=== PATIENT | female | born 1945 | race Caucasian/White ===

== ENCOUNTER → 2023-12-29 14:21 | Outpatient (REF) | payer MEDICARE, OTHER, SELFPAY | LOC: WDC 14:21 | PROVIDERS: ATTENDING PHYSICIAN Physician Assistant Medical; FAMILY PHYSICIAN Internal Medicine | DX: Z12.31 Encounter for screening mammogram for malignant neoplasm of breast (principal) | CPT/HCPCS: 77063; 77067 ==

== ENCOUNTER 2024-02-22 07:38 | Emergency (ER) | payer MEDICARE, OTHER, SELFPAY ==
[2024-02-22 07:41] VITALS: BP 152/76
[2024-02-22 09:37] VITALS: BMI 29.3
--- NOTE | 2024-02-22 09:43 | ED.GENMED ---
History of Present Illness
General
Chief Complaint: Fall
Source: patient
Exam Limitations: none
Time Seen by Provider: 02/22/24 09:25
Nursing documentation reviewed up to this point in time: agreed with
Travel History
Have you had any contact with someone who has COVID-19?: No
Do you have any symptoms of coronavirus? Fever > 100 degrees, chills, cough, shortness of breath, sore throat, loss of taste or smell, muscle aches, or headache?: No
History of Present Illness
History of Present Illness:
78-year-old female with past medical history as documented presents to the emergency room with her for evaluation after fall with head trauma. Patient reports that she was carrying a bag walking down the steps today and she tripped and fell
down approximately 5 steps. She says that she fell forward and struck her head directly on the ground. She does not believe that she lost consciousness. She says that she also injured her right shoulder and her right watts. She complains of
significant headache. Denies any neck pain. She says she has some pain in the anterior right shoulder. She has some pain in the anterior lateral right watts and large hematoma in the area. She denies any back pain. Denies any chest wall/rib
pain. Denies any abdominal pain. She denies any numbness or tingling in her extremities. She is on aspirin but no other blood thinners.
Past History
Past History
ED Past Medical History: HTN, Hypercholesterolemia, Hypothyroidism and Psychiatric (Depression)
ED Past Surgical History: Cardiac (pacemaker/defib), Gynecological (Hysterectomy) and Other (Cataract surgery)
Social History
Tobacco: Non-smoker
Alcohol: None
Drug: None
Personal:
Living: with family
Employment: Employed
Review of Systems
Review of Systems
All Other Systems: ROS reviewed and negative except as documented in HPI and ROS
Constitutional: Denies fever
Respiratory: Denies trouble breathing
Cardiac: Denies chest pain
ABD/GI: Denies abdominal pain, nausea or vomiting
: Denies flank pain
Musculoskeletal: Reports joint pain (Shoulder pain) and muscle pain (Watts pain); Denies neck pain or back pain
Neurological: Reports headache; Denies dizzy, weakness or numbness
Phy Exam
Physical Exam
Physical Exam:
General: Awake, alert, oriented x3 with a GCS of 15; no acute distress
Head: Normocephalic, right forehead contusion
Eyes: Conjunctiva normal, EOMI, pupils equal round and reactive to light bilaterally
Throat: Airway intact, handling secretions, tongue atraumatic
Neck: Trachea midline, no midline cervical spine tenderness, cervical collar in place
Lungs: Clear to auscultation bilaterally, no wheezing, rales, rhonchi
Heart: Regular rate and rhythm, no murmurs, gallops, or rubs; no chest wall tenderness
Abd: Soft, non distended, nontender
Neuro: Cranial nerves intact, speech is fluid, motor and sensory function intact in all extremities
Skin: Right forehead ecchymosis, right lower leg ecchymosis, no lacerations or abrasions
Extremities: Patient has some mild tenderness along the AC joint and the right shoulder but full range of motion of the right shoulder no deformity; rest of upper extremities atraumatic and nontender; she has a large right watts hematoma anterior
lateral which is tender to the touch but no tenderness of the right ankle or knee and full range of motion of these joints, rest of extremities atraumatic and nontender; good pulses in all extremities
Scores
Heart Failure Risk
Heart Failure Risk Score: Not Applicable
Heart Score for Chest Pain Patients
STEMI patient?: Not applicable
Withdrawal Assessment of Alcohol
Withdrawal Assessment Completed?: Not applicable
Course
Orders/Labs/Results
Orders:
Orders
02/22/24 07:45
CT Head W/o Iv Contrast Urgent
Comment:
Reason For Exam: fall
CR Shoulder, Trauma - Right Urgent
Comment:
Reason For Exam: fall
Leg Tibia/Fibula, Right 2 View [CR Leg Tibia/fibula Right 2 Vw] Urgent
Comment:
Reason For Exam: fall
02/22/24 09:26
CT Cervical Spine W/o Iv Contr Urgent
Comment:
Reason For Exam: fall with head strike
02/22/24 09:27
Complete Blood Count/With Diff Urgent
Comprehensive Metabolic Panel Urgent
PTT Urgent
Prothrombin Time Urgent
02/22/24 09:38
Cervical Collar- Treatment ONCE
Collar Type: Hard Cervical Collar
Vital Signs
Initial and Last Documented VS:
Initial Vital Signs
Temp Pulse Resp BP Pulse Ox
36.6 C 69 16 152/76 99
02/22/24 07:41 02/22/24 07:41 02/22/24 07:41 02/22/24 07:41 02/22/24 07:41
Last Documented Vital Signs
Temp Pulse Resp BP Pulse Ox
36.6 C 69 16 152/76 99
02/22/24 07:41 02/22/24 07:41 02/22/24 07:41 02/22/24 07:41 02/22/24 07:41
MDM/Problems Addressed
Differential Diagnosis Includes:
Headache: Intracranial hemorrhage, concussion, contusion
Shoulder pain: Fracture, dislocation, sprain, AC separation
Leg injury: Contusion, fracture
MDM/Problems Addressed:
78-year-old female presents to the emergency room for evaluation after a fall down about 5 steps�fall occurred around 7:30�8 AM today. She is on aspirin but no other blood thinners. She struck her head and injured her right shoulder and lower leg.
Vital signs significant for hypertension but otherwise unremarkable. Physical exam as above. GCS 15 primary survey intact. Cervical collar applied. She had a CT head ordered in triage which was positive for a small subdural hematoma. Will send
for CT cervical spine as well. X-ray of the right shoulder and tip/fib. Case discussed with neurosurgery�will arrange for transfer to [facility].
X-ray of the shoulder and tip/fib negative for any acute fracture. CT cervical spine negative. Case discussed with trauma physician at [facility] and patient accepted for transfer to ICU by Dr. Forrester. Continue to monitor pending transport.
Acute Exacerbation and/or Progression of Chronic Illness: HTN
*Radiology
Radiology exam reviewed: preliminary read by ED provider and radiology read reviewed
*Pulse Oximetry
Patient hypoxic: no
*Critical Care Note
Total Time (30-74mins, 75-104mins- exclusive of procedures): 38 (38)
comment:
Critical care statement: A total of 38 minutes of critical care time was provided for this patient. This includes management of unstable vital signs, evaluation of the patient at bedside, frequent reassessment, discussion with
consultants/hospitalist, and review of pertinent medical records. This time was separate from time utilized to perform any aforementioned documented procedures
Data Reviewed
Review of Other/Old Records Reveals: Records
Source: patient and spouse
Patient Management
Discussion with other providers: Can Filling Room Sweeper (Discussed with neurosurgery, discussed with trauma physician at [facility])
Escalation/DeEscalation of care consider admission/obs:
Admission indicated�transfer to trauma center
ED Attending Note
-
Portions of this chart may have been created with voice recognition software.� Occasional wrong word or��sound alike� substitutions may have occurred due to the inherent limitations of voice recognition software.
Discharge Plan
Departure
Patient Disposition: Acute Care Hospital
Date of Disposition: 02/22/24
Time of Disposition: 09:55
Patient with high blood pressure during this ER visit?: Yes
Discharge Problem:
Acute subdural hematoma, Hematoma of right lower leg, Injury of right shoulder
Prescriptions:
No Action
venlafaxine [Effexor XR] 150 MG capsule,extended release 24hr
150 mg PO DAILY
simvastatin 20 MG tablet
20 mg PO HS
bupropion HCl 150 MG tablet sustained-release 12 hr
150 mg PO DAILY
aspirin 81 MG tablet,chewable
81 mg PO DAILY
carvedilol 3.125 MG tablet
3.125 mg PO BID Qty: 60 10RF
levothyroxine 88 mcg Capsule
88 mcg PO DAILY
Jardiance 10 mg Tablet
10 mg PO DAILY
Entresto 24-26 mg Tablet
1 tab PO BID
famotidine 10 mg Tablet
10 mg PO DAILY
Referrals:
Poornima Lin MD [Family Provider] -
Hospital Transfer
Other hospital: [facility]
I certify that the patient requires transfer: Yes
Discussed case with accepting physician: Dr. Forrester
Reason for transfer: higher level of care and specialties available
Interventions
Interventions:
*Risk Screen - Suicide Last Done: 02/22/24 07:44
*General Assessment Last Done: 02/22/24 07:44
*Neglect/Abuse Screening Last Done: 02/22/24 07:44
Discharge Date and Time
Print Language: MACANESE
[2024-02-22 10:00] LABS: % Basophils 0.6 % (0-2); % Eosinophils 1.6 % (0-6); % Immature Granulocytes 0.7 % (0-0.5); % Lymphocytes 10.9 % (20.5-51.1); % Monocytes 6.8 % (1.7-9.3); % Neutrophils 79.4 % (42.2-75.2); Absolute Basophils 0.1 10^3/uL (0-0.2); Absolute Eosinophils 0.2 10^3/uL (0-0.7); Absolute Immature Granulocytes 0.1 10^3/uL (0-0.05); Absolute Lymphocytes 1.1 10^3/uL (1.2-3.4); Absolute Monocytes 0.7 10^3/uL (0.1-0.6); Absolute Neutrophils 7.8 10^3/uL (1.4-6.5); Hematocrit 43.1 % (37.0-47.0); Hemoglobin 14.2 g/dL (12.0-16.0); Mean Corp Hgb Conc. 32.9 g/dL (33.0-37.0); Nucleated Red Blood Cells % 0 %; Platelet Count 222 10^3/uL (130-400); Red Cell Dist. Width 13.5 % (11.5-14.5); White Blood Cell Count 9.9 10^3/uL (4.8-10.8)
[2024-02-22 10:07] LABS: APTT 28.6 Sec (23.4-35.0); INR 1.03; PT 13.3 Sec (11.4-14.6)
[2024-02-22 10:14] VITALS: BP 142/75
[2024-02-22 10:21] LABS: ALT (SGPT) 17 U/L (0-35); AST (SGOT) 26 U/L (14-36); Albumin 4.4 g/dl (3.5-5.0); Alkaline Phosphatase 78 U/L (38-126); Blood Urea Nitrogen 18 mg/dl (7-17); Calcium 9.6 mg/dl (8.4-10.2); Carbon Dioxide 30 mmol/L (22-30); Chloride 105 mmol/L (98-107); Estimated Creatinine Clearance 56 ml/min; Glucose 117 mg/dl (70-99); Potassium 4.2 mmol/L (3.5-5.1); Sodium 142 mmol/L (135-145); Total Bilirubin 0.9 mg/dl (0.2-1.3); Total Protein 7.2 g/dl (6.3-8.2); eGFR > 60.00
== END 2024-02-22 11:12 | disposition short-term general hospital (02) ==
LOC: EMR 07:38
PROVIDERS: EMERGENCY PHYSICIAN Emergency Medicine; FAMILY PHYSICIAN Internal Medicine
DX: S40.011A Contusion of right shoulder, initial encounter (principal); S80.11XA Contusion of right lower leg, initial encounter; W10.9XXA Fall (on) (from) unspecified stairs and steps, initial encounter; Y93.01 Activity, walking, marching and hiking; I10 Essential (primary) hypertension; E78.00 Pure hypercholesterolemia, unspecified; E03.9 Hypothyroidism, unspecified; F32.A Depression, unspecified; Z79.82 Long term (current) use of aspirin; Z90.710 Acquired absence of both cervix and uterus; Z95.0 Presence of cardiac pacemaker
CPT/HCPCS: 99291; 70450; 72125; 73030; 73590; 80053; 85025; 85610; 85730

== ENCOUNTER → 2024-03-26 08:53 | Outpatient (REF) | payer MEDICARE, OTHER, SELFPAY | LOC: HWRAD 08:53 | PROVIDERS: ATTENDING PHYSICIAN Physician Assistant Medical; FAMILY PHYSICIAN Internal Medicine | DX: K76.9 Liver disease, unspecified (principal); S06.5XAA Traumatic subdural hemorrhage with loss of consciousness status unknown, initial encounter | CPT/HCPCS: 70450; 76700 ==

== ENCOUNTER → 2024-05-18 08:51 | Outpatient (REF) | payer MEDICARE, OTHER, SELFPAY ==
[2024-05-18 09:45] LABS: % Basophils 0.9 % (0-2); % Eosinophils 3.1 % (0-6); % Immature Granulocytes 0.3 % (0-0.5); % Monocytes 8.2 % (1.7-9.3); % Neutrophils 62.5 % (42.2-75.2); Absolute Basophils 0.1 10^3/uL (0-0.2); Absolute Eosinophils 0.2 10^3/uL (0-0.7); Absolute Lymphocytes 1.7 10^3/uL (1.2-3.4); Absolute Monocytes 0.6 10^3/uL (0.1-0.6); Absolute Neutrophils 4.2 10^3/uL (1.4-6.5); Hematocrit 42.8 % (37.0-47.0); Mean Corp Hgb Conc. 32.7 g/dL (33.0-37.0); Mean Corpuscular Hgb 29.4 pg (27.0-31.0); Mean Corpuscular Volume 89.9 fL (81.0-99.0); Mean Platelet Volume 10.4 fL (7.4-10.4); Nucleated Red Blood Cells % 0 %; Platelet Count 217 10^3/uL (130-400); Red Blood Cell Count 4.76 10^6/uL (4.20-5.40); Red Cell Dist. Width 13.9 % (11.5-14.5); White Blood Cell Count 6.7 10^3/uL (4.8-10.8)
[2024-05-18 10:13] LABS: Glycohemoglobin (HgbA1c) 6.1 % (4.0-5.6)
[2024-05-18 10:32] LABS: ALT (SGPT) 13 U/L (0-35); AST (SGOT) 19 U/L (14-36); Albumin 4.3 g/dl (3.5-5.0); Alkaline Phosphatase 76 U/L (38-126); Blood Urea Nitrogen 23 mg/dl (7-17); Calcium 9.8 mg/dl (8.4-10.2); Carbon Dioxide 29 mmol/L (22-30); Chloride 103 mmol/L (98-107); Glucose 114 mg/dl (70-99); HDL Cholesterol 79 mg/dl; LDL Cholesterol, Calculated 102 mg/dl; Potassium 4.8 mmol/L (3.5-5.1); Sodium 143 mmol/L (135-145); Total Bilirubin 0.7 mg/dl (0.2-1.3); Total Cholesterol 205 mg/dl (50-199); Triglyceride 124 mg/dl (10-149); Very Low Density Lipoprotein 24 mg/dl (0-30); eGFR > 60.00
[2024-05-18 11:06] LABS: TSH 0.69 uIU/ml (0.47-4.68)
== END ==
LOC: REG 08:51
PROVIDERS: ATTENDING PHYSICIAN Internal Medicine
DX: I50.22 Chronic systolic (congestive) heart failure (principal); I10 Essential (primary) hypertension; E78.2 Mixed hyperlipidemia; E66.3 Overweight; E78.5 Hyperlipidemia, unspecified
CPT/HCPCS: 36415; 80053; 80061; 83036; 84443; 85025

== ENCOUNTER 2024-10-06 11:36 | Emergency (ER) | payer MEDICARE, OTHER, SELFPAY ==
[2024-10-06 11:41] VITALS: BP 109/60
--- NOTE | 2024-10-06 13:17 | ED.GENMED ---
History of Present Illness
General
Chief Complaint: Musculo-Skeletal Complaint
Time Seen by Provider: 10/06/24 13:00
History of Present Illness
History of Present Illness:
Patient is a 79-year-old woman presenting to the emergency department with left hip pain. Patient states that yesterday she was getting into her car when her right leg was in the car and all her weight was on the left leg. She states at that point
her left leg gave out. She did not fall. She was having difficulty with walking. She states that she is significant pain with flexion of her hip. No tenderness. No bruising. No numbness tingling. No back pain.
Past History
Past History
ED Past Medical History: HTN, Hypercholesterolemia, Hypothyroidism and Psychiatric (Depression)
ED Past Surgical History: Cardiac (pacemaker/defib), Gynecological (Hysterectomy) and Other (Cataract surgery)
Social History
Tobacco: Non-smoker
Alcohol: None
Drug: None
Personal:
Living: with family
Employment: Employed
Phy Exam
Physical Exam
Physical Exam:
GENERAL: no acute distress
HEENT: atraumatic
NECK: no midline tenderness
BACK: no midline tenderness, no other obvious trauma
CARDIOVASCULAR: regular rate and rhythm
ABDOMEN: soft, non-tender, no masses, no other obvious trauma
PELVIS: Difficulty with flexion of the hip when the leg is extended. With the knee flexed she is able to fully flex the hip, no tenderness to palpation
EXTREMITIES: moving all extremities, distal pulses intact, no other obvious trauma
NEUROLOGIC: awake, alert x 3, no focal deficits
Course
Orders/Labs/Results
Orders:
Orders
10/06/24 13:17
Ibuprofen [Motrin] 800 mg PO NOW STA
CR Hip - LT w/wo Pel 2-3 Vw* Urgent
Comment:
Reason For Exam: hip pain
Include a pelvis x-ray?: Yes
Vital Signs
Initial and Last Documented VS:
Initial Vital Signs
Temp Pulse Resp BP Pulse Ox
97.2 F 71 16 109/60 99
10/06/24 11:41 10/06/24 11:41 10/06/24 11:41 10/06/24 11:41 10/06/24 11:41
Last Documented Vital Signs
Temp Pulse Resp BP Pulse Ox
97.2 F 71 16 109/60 99
10/06/24 11:41 10/06/24 11:41 10/06/24 11:41 10/06/24 11:41 10/06/24 11:41
MDM/Problems Addressed
Differential Diagnosis Includes:
79-year-old woman presenting to the emergency department with left hip pain. Vitals unremarkable and exam does show some difficulty with flexion of the knee when the entire leg is extended. She does not have any tenderness to palpation. Concern
for fracture versus MSK pain. Will give pain medication and obtain x-ray.
*Critical Care Note
Total Time (30-74mins, 75-104mins- exclusive of procedures): Not Applicable
Update Note
Update Note:
X-ray per my interpretation with no obvious fracture. Patient was able to ambulate does note the pain is improved. We did discuss the possibility of obtaining a CT pelvis however the pain is more lateral and goes down her leg only when she walks.
Less likely to be a subtle pelvic fracture. After shared decision making we will hold off on CT scan. Patient educated on pain medication regimen. She will call physical therapy for an appointment as well as her primary care doctor. Strict
return precautions given. Will discharge at this time
ED Attending Note
-
Portions of this chart may have been created with voice recognition software.� Occasional wrong word or��sound alike� substitutions may have occurred due to the inherent limitations of voice recognition software.
Discharge Plan
Departure
Discharge Problem:
Hip pain
Instructions: Muscle Strain (DC), Active Range of Motion Exercises, Back and Hips, Hip Pain ED
Prescriptions:
No Action
venlafaxine [Effexor XR] 150 MG capsule,extended release 24hr
150 mg PO DAILY
simvastatin 20 MG tablet
20 mg PO HS
bupropion HCl 150 MG tablet sustained-release 12 hr
150 mg PO DAILY
aspirin 81 MG tablet,chewable
81 mg PO DAILY
carvedilol 3.125 MG tablet
3.125 mg PO BID Qty: 60 10RF
levothyroxine 88 mcg Capsule
88 mcg PO DAILY
Jardiance 10 mg Tablet
10 mg PO DAILY
Entresto 24-26 mg Tablet
1 tab PO BID
famotidine 10 mg Tablet
10 mg PO DAILY
Referrals:
Slick Meléndez MD [Family Provider] -
Activity Restrictions/Additional Instructions:
Please call your physical therapist as well as her primary care doctor to schedule an appointment. Please try the exercises that were printed out. You may alternate heat and ice to help with the pain.
We discussed pain medications:
You may take Tylenol (also known as Acetaminophen) for pain.
You may take 1000mg Acetaminophen (two extra-strength tablets) per dose, which should be taken every 6-8 hours, or three times a day.
If you have normal strength Tylenol, you can take 650mg (two normal strength tablets) every 4-6 hours.
Do not take more than 3,000mg (3 grams) of Acetaminophen per day.
Never take more than as directed on the bottle.
You may also take Ibuprofen (also known as Motrin or Advil). If taking with Tylenol, alternate and take between dosing.
You may take 400-800mg of Ibuprofen per dose, which should be taken every 6-8 hours.
Do not take more than 3200mg (3.2 grams) of Ibuprofen per day.
You may also benefit from using a Lidocaine Patch (also known as 'Salon Pas'), which is an over the counter pain patch.
Place it just over the site of pain, avoiding areas of skin damage, as per instructions on the patch.
Please see your primary care doctor soon to be reevaluated and to make sure that you are improving. We have included information about establishing care with a doctor if you do not have one.
We talked about your evaluation, diagnosis, and treatment in the Emergency Department today. You must see your primary doctor for recheck and followup care in order to evaluate your progress or any changes. Have your doctor recheck the test
results/information from the ED visit. As discussed, RETURN to the ED if you develop worsening/changing symptoms or have no improvement in symptoms after the treatments provided.
Interventions
Interventions:
*Risk Screen - Suicide Last Done: 10/06/24 11:41
*General Assessment Last Done: 10/06/24 11:41
*Neglect/Abuse Screening Last Done: 10/06/24 11:41
*ED COVID-19 Vaccine History Last Done: 10/06/24 11:41
ED-Musculoskeletal Assessment Last Done: 10/06/24 12:28
Discharge Date and Time
Print Language: BURKINAN
[2024-10-06] MEDS: MOTRIN 800 MG PO (13:32)
[2024-10-06 15:30] VITALS: BP 105/58
== END 2024-10-06 15:34 | disposition home or self-care (01) ==
LOC: EMR 11:36
PROVIDERS: EMERGENCY PHYSICIAN Student in an Organized Health Care Education/Training Program; FAMILY PHYSICIAN Internal Medicine
DX: M25.552 Pain in left hip (principal); I10 Essential (primary) hypertension; E78.00 Pure hypercholesterolemia, unspecified; E03.9 Hypothyroidism, unspecified; Z95.0 Presence of cardiac pacemaker; Z90.710 Acquired absence of both cervix and uterus
CPT/HCPCS: 99283; 73502

== ENCOUNTER → 2024-12-31 14:56 | Outpatient (REF) | payer MEDICARE, OTHER, SELFPAY | LOC: WDC 14:56 | PROVIDERS: ATTENDING PHYSICIAN Obstetrics & Gynecology | DX: Z12.31 Encounter for screening mammogram for malignant neoplasm of breast (principal) | CPT/HCPCS: 77063; 77067 ==

== ENCOUNTER → 2025-03-12 10:09 | Outpatient (REF) | payer MEDICARE, OTHER, SELFPAY | LOC: HWRAD 10:09 | PROVIDERS: ATTENDING PHYSICIAN Obstetrics & Gynecology Gynecology; FAMILY PHYSICIAN Internal Medicine; REFERRING PHYSICIAN Obstetrics & Gynecology | DX: M81.0 Age-related osteoporosis without current pathological fracture (principal) | CPT/HCPCS: 77080 ==

== ENCOUNTER 2025-04-17 14:47 | Emergency (ER) | payer MEDICARE, OTHER, SELFPAY ==
[2025-04-17 15:03] VITALS: BP 141/59
--- NOTE | 2025-04-17 17:12 | ED.GENMED ---
History of Present Illness
General
Chief Complaint: Fall
Source: patient
Exam Limitations: none
Time Seen by Provider: 04/17/25 16:33
Nursing documentation reviewed up to this point in time: agreed with
History of Present Illness
History of Present Illness:
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 She struck
the dorsum of her right hand, her left knee and her left great toe when she fell all of these have mild pain and small bruises and mild abrasions. She hit the right side of her face and has mild swelling and ecchymosis of right TMJ anf sikhism area.
there was no loss of consciousness. She denies neck pain , she has a mild headache but mostly painful at the site.
Past History
Past History
ED Past Medical History: HTN, Hypercholesterolemia, Hypothyroidism and Psychiatric (Depression)
ED Past Surgical History: Cardiac (pacemaker/defib), Gynecological (Hysterectomy) and Other (Cataract surgery)
Social History
Tobacco: Non-smoker
Alcohol: None
Drug: None
Personal:
Living: with family
Employment: Employed
Review of Systems
Review of Systems
Allergies reviewed?: Yes
All Other Systems: ROS reviewed and negative except as documented in HPI and ROS
Cardiac: Denies syncope
ABD/GI: Denies nausea
Skin: Reports other (Mild bruising and swelling right sikhism area, small mild abrasions of left knee, left great toe and right hand dorsum)
Neurological: Reports headache (Mild, 2/10); Denies dizzy or weakness
Phy Exam
Physical Exam
Physical Exam:
GENERAL: No acute distress. A&Ox3.
CONSTITUTIONAL: Afebrile.
EYES: clear, conjunctivae normal
ENMT: moist mucus membranes, Pharynx nl, TMs normal, no hemotympanum. Full range of motion of jaw with no significant discomfort.
RESPIRATORY: Regular respirations, nonlabored, lungs clear.
CARDIOVASCULAR: Regular rate and rhythm, no murmurs, no rubs.
GI: Soft, nontender, normal BS
MUSCULOSKELETAL: Moves with ease. Well perfused.
SKIN: Warm, dry, pink, tiny superficial clean abrasion left great toe, left knee, dorsum of right hand
PSYCH: Normal mood and affect. Well kept, interactive and appropriate
NEUROLOGIC: Awake, alert and oriented. Cranial nerves II through XII intact. No focal neurological deficits. Ambulates with steady gait.
Course
Orders/Labs/Results
Orders:
Orders
04/17/25 15:[address] [CT Head W/o Iv Contrast] Urgent
Comment:
Reason For Exam: head strike, +asa
Vital Signs
Initial and Last Documented VS:
Initial Vital Signs
Temp Pulse Resp BP Pulse Ox
98.2 F 74 16 141/59 98
04/17/25 15:03 04/17/25 15:03 04/17/25 15:03 04/17/25 15:03 04/17/25 15:03
Last Documented Vital Signs
Temp Pulse Resp BP Pulse Ox
98.2 F 74 16 141/59 98
04/17/25 15:03 04/17/25 15:03 04/17/25 15:03 04/17/25 15:03 04/17/25 17:14
MDM/Problems Addressed
Differential Diagnosis Includes:
Concussion, head bleed, facial bone fracture
MDM/Problems Addressed:
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 She struck
the dorsum of her right hand, her left knee and her left great toe when she fell all of these have mild pain and small bruises and mild abrasions. She hit the right side of her face and has mild swelling and ecchymosis of right TMJ and sikhism area.
there was no loss of consciousness. She denies neck pain , she has a mild headache but mostly painful at the site.
Neuro exam is normal
No sign of concussion
Head CT radiology report read:
IMPRESSION:
No acute intracranial abnormality noted.
No acute intracranial hemorrhage. No calvarial fracture. Suggestion of mild scalp soft tissue swelling superior to the right zygoma.
Patient stable for discharge
Patient ambulated out with her with normal gait at discharge.
*Pulse Oximetry
SaO2: 98
Oxygen Mode of Delivery: Room air
Patient hypoxic: not evaluated
*Critical Care Note
Total Time (30-74mins, 75-104mins- exclusive of procedures): Not Applicable
ED Attending Note
-
Portions of this chart may have been created with voice recognition software.� Occasional wrong word or��sound alike� substitutions may have occurred due to the inherent limitations of voice recognition software.
Discharge Plan
Departure
Patient Disposition: Home (Routine Discharge)
Date of Disposition: 04/17/25
Time of Disposition: 17:10
Patient with high blood pressure during this ER visit?: No
Condition: Good
Discharge Problem:
Fall from slip, trip, or stumble, Contusion of face
Instructions: Head Injury in Adults (DC), Contusion (DC)
Prescriptions:
No Action
venlafaxine [Effexor XR] 150 MG capsule,extended release 24hr
150 mg PO DAILY
simvastatin 20 MG tablet
20 mg PO HS
bupropion HCl 150 MG tablet sustained-release 12 hr
150 mg PO DAILY
aspirin 81 MG tablet,chewable
81 mg PO DAILY
carvedilol 3.125 MG tablet
3.125 mg PO BID Qty: 60 10RF
levothyroxine 88 mcg Capsule
88 mcg PO DAILY
Jardiance 10 mg Tablet
10 mg PO DAILY
Entresto 24-26 mg Tablet
1 tab PO BID
famotidine 10 mg Tablet
10 mg PO DAILY
Referrals:
Slick Meléndez MD [Family Provider, Internal Medicine] - As needed
Activity Restrictions/Additional Instructions:
As we discussed, your CAT scan shows nothing worrisome. Tylenol or ibuprofen as needed for pain
Cold compress 20 minutes off-and-on to any sore or swollen areas.
Interventions
Interventions:
*Risk Screen - Suicide Last Done: 04/17/25 15:03
*General Assessment Last Done: 04/17/25 16:23
*Neglect/Abuse Screening Last Done: 04/17/25 15:03
*ED- Fall Risk Assessment Last Done: 04/17/25 16:23
*ED COVID-19 Vaccine History Last Done: 04/17/25 16:23
*Nursing Disposition Last Done: 04/17/25 17:26
ED- Neurological Assessment Last Done: 04/17/25 16:29
Discharge Date and Time
Discharge Date/Time: 04/17/25 17:27
Print Language: CZECH
== END 2025-04-17 17:27 | disposition home or self-care (01) ==
LOC: EMR 14:47
PROVIDERS: EMERGENCY PHYSICIAN Emergency Medicine; FAMILY PHYSICIAN Internal Medicine
DX: S00.83XA Contusion of other part of head, initial encounter (principal); S80.212A Abrasion, left knee, initial encounter; W01.0XXA Fall on same level from slipping, tripping and stumbling without subsequent striking against object, initial encounter; I11.0 Hypertensive heart disease with heart failure; I50.9 Heart failure, unspecified; E03.9 Hypothyroidism, unspecified; E78.00 Pure hypercholesterolemia, unspecified; Z90.710 Acquired absence of both cervix and uterus; Z95.0 Presence of cardiac pacemaker
CPT/HCPCS: 99284; 70450

== ENCOUNTER → 2025-08-13 12:43 | Outpatient (REF) | payer MEDICARE, OTHER, SELFPAY | LOC: RCS 12:43 | PROVIDERS: ATTENDING PHYSICIAN Internal Medicine; FAMILY PHYSICIAN Internal Medicine | DX: I50.22 Chronic systolic (congestive) heart failure (principal); I10 Essential (primary) hypertension; I42.0 Dilated cardiomyopathy; Z95.810 Presence of automatic (implantable) cardiac defibrillator; I34.0 Nonrheumatic mitral (valve) insufficiency | CPT/HCPCS: 93306 ==

== ENCOUNTER → 2025-08-21 09:06 | Outpatient (REF) | payer MEDICARE, OTHER, SELFPAY ==
[2025-08-21 09:45] LABS: Hematocrit 42.3 % (37.0-47.0); Hemoglobin 13.9 g/dL (12.0-16.0); Mean Corp Hgb Conc. 32.9 g/dL (33.0-37.0); Mean Corpuscular Volume 92.4 fL (81.0-99.0); Nucleated Red Blood Cells % 0 %; Platelet Count 245 10^3/uL (130-400); Red Cell Dist. Width 13.0 % (11.5-14.5)
[2025-08-21 10:23] LABS: Glycohemoglobin (HgbA1c) 6.3 % (4.0-5.9)
[2025-08-21 10:30] LABS: ALT (SGPT) 13 U/L (0-35); AST (SGOT) 18 U/L (14-36); Albumin 4.2 g/dl (3.5-5.0); Alkaline Phosphatase 71 U/L (38-126); Blood Urea Nitrogen 19 mg/dl (7-17); Calcium 9.2 mg/dl (8.4-10.2); Carbon Dioxide 31 mmol/L (22-30); Chloride 105 mmol/L (98-107); Glucose 113 mg/dl (70-99); HDL Cholesterol 63 mg/dl; LDL Cholesterol, Calculated 68 mg/dl; Potassium 4.3 mmol/L (3.5-5.1); Sodium 140 mmol/L (135-145); Total Protein 7.1 g/dl (6.3-8.2); Very Low Density Lipoprotein 21 mg/dl (0-30); eGFR > 60.00
[2025-08-21 11:01] LABS: TSH 0.51 uIU/ml (0.47-4.68)
== END ==
LOC: REG 09:06
PROVIDERS: ATTENDING PHYSICIAN Internal Medicine; FAMILY PHYSICIAN Internal Medicine
DX: I50.22 Chronic systolic (congestive) heart failure (principal); I10 Essential (primary) hypertension; I42.0 Dilated cardiomyopathy; Z95.810 Presence of automatic (implantable) cardiac defibrillator; I34.0 Nonrheumatic mitral (valve) insufficiency; E66.3 Overweight; R73.03 Prediabetes
CPT/HCPCS: 36415; 80053; 80061; 83036; 84443; 85025

== ENCOUNTER 2025-08-24 19:02 | Emergency (ER) | payer MEDICARE, OTHER, SELFPAY ==
[2025-08-24 19:07] VITALS: BP 146/71
[2025-08-24 19:35] VITALS: BMI 32.9
[2025-08-24 19:38] VITALS: BP 127/54
[2025-08-24 19:58] LABS: Hematocrit 40.4 % (37.0-47.0); Hemoglobin 13.1 g/dL (12.0-16.0); Mean Corp Hgb Conc. 32.4 g/dL (33.0-37.0); Mean Corpuscular Volume 91.2 fL (81.0-99.0); Nucleated Red Blood Cells % 0 %; Platelet Count 193 10^3/uL (130-400); Red Cell Dist. Width 13.2 % (11.5-14.5)
[2025-08-24 20:00] VITALS: BP 123/52
--- NOTE | 2025-08-24 20:20 | ED.GENMED ---
History of Present Illness
General
Chief Complaint: Allergic Reaction
Source: patient
Exam Limitations: none
Time Seen by Provider: 08/24/25 19:57
History of Present Illness
History of Present Illness:
Note:
CHIEF COMPLAINT(S)
Itchy rash all over the body, particularly in the groin and upper extremities.
HISTORY OF PRESENT ILLNESS
The patient is a 80-year-old female with a relevant past medical history of hypertension, diabetes, and previous lung surgery, who presents with an itchy rash all over her body. Approximately one week ago, she was treated for a urinary tract
infection with a five-day course of an unknown medication. Following completion of this medication, she continued to experience urinary symptoms and was prescribed Diflucan. After starting the medication, she began to develop itchy hands on
, followed by a rash that spread to her back and groin by Tuesday. Despite taking Benadryl, the itchiness and rash persisted. She reports no difficulty breathing or swelling of the lips or tongue.
PAST MEDICAL AND SURIGICAL HISTORY
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
- Hypertension, treated with medication.
- Diabetes, currently not on medication.
- Hypercholesterolemia.
- No history of myocardial infarction or stroke.
ALLERGIES
- Diclofenac
- Morphine
PHYSICAL EXAM
General: Alert, oriented, in no acute distress aside from complaints of itching.
Skin: Warm, dry with hives noted on upper extremities, trunk, and groin region. Rash is pruritic.
Head: Normocephalic, atraumatic.
Eye, Ears, Nose, Mouth, and Throat: Oral mucosa is moist; tongue, lips, and uvula are normal; oral pharynx normal with no stridor.
Neck: Supple, trachea midline.
Respiratory: Respirations are non-labored with no wheezing noted.
Cardiovascular: Regular heart rhythm, no murmurs or edema present.
Gastrointestinal: Abdomen nondistended.
Neurological: Alert and oriented, no focal neurological deficit observed.
Psychiatric: Cooperative, appropriate mood and affect.
PROBLEM LIST
Acute:
- Itchy rash with hives, likely allergic reaction.
Chronic:
- Hypertension
- Diabetes
- Hypercholesterolemia
- Status post lung surgery for granuloma
- Presence of pacemaker/defibrillator
PLAN
- Administered intravenous steroids and an alternative antihistamine in the emergency department.
- Prescriptions for ongoing antihistamines (Claritin or Carin) as needed for less sedating effects.
- Prescribe a short course of oral steroids to address the allergic reaction.
DIFFERENTIAL DIAGNOSIS
The Differential Diagnosis includes, in no particular order and not limited to:
1. Allergic reaction to medication (Diflucan)
2. Viral exanthem
3. Contact dermatitis
4. Urticaria
5. Drug-induced rash
6. Atopic dermatitis
7. Psoriasis
8. Lichen planus
9. Scabies
10. Autoimmune rash (e.g., lupus erythematosus)
Disposition:
SUMMARY OF ENCOUNTER
A 80-year-old female presented with hives and a pruritic rash likely related to a recent dose of fluconazole. There were no signs of airway involvement or systemic symptoms. In the emergency department, she was treated with intravenous dexamethasone
to alleviate symptoms. A tapering dose of prednisone was recommended for outpatient management, alongside follow-up care.
PLAN
Administer intravenous dexamethasone in the emergency department. Prescribe a tapering dose of prednisone for the patient to take at home. Recommend follow-up care as an outpatient to ensure resolution of symptoms.
MEDICATION RECONCILIATION
1. Administered in the emergency department: Dexamethasone, intravenous.
2. Prescribed: Prednisone, tapering dose.
MEDICAL DECISION MAKING
-Complexity of Data Reviewed: Chronic conditions affecting care including hypertension, diabetes, hypercholesterolemia, post lung surgery for granuloma resection, and presence of pacemaker/defibrillator. Differential diagnosis includes:
1. Allergic reaction to medication (Diflucan)
2. Viral exanthem
3. Contact dermatitis
4. Urticaria
5. Drug-induced rash
6. Atopic dermatitis
7. Psoriasis
8. Lichen planus
9. Scabies
10. Autoimmune rash (e.g., lupus erythematosus)
-Data:
Category 1: Reviewed the patients presentation and history indicative of an allergic reaction to fluconazole.
-Risk: Prescription medication was prescribed, and the patients symptoms required management with corticosteroids for an allergic reaction.
DIAGNOSIS
Allergic dermatitis due to drug - ICD-10: L27.0
Past History
Past History
ED Past Medical History: HTN, Hypercholesterolemia, Hypothyroidism and Psychiatric (Depression)
ED Past Surgical History: Cardiac (pacemaker/defib), Gynecological (Hysterectomy) and Other (Cataract surgery)
Social History
Tobacco: Non-smoker
Alcohol: None
Drug: None
Personal:
Living: with family
Employment: Employed
Phy Exam
Physical Exam
Physical Exam:
.
Course
Orders/Labs/Results
Orders:
Orders
08/24/25 19:50
CBC/With Diff [Complete Blood Count/With Diff] Urgent
Comprehensive Metabolic Panel Urgent
08/24/25 20:19
Dexamethasone Sod Phosphate [Decadron] 10 mg IV NOW STA
Famotidine [Pepcid] 20 mg IV NOW STA
Abnormal Lab Results
08/24/25
19:50
WBC 13.5 H 10^3/uL
(4.8-10.8)
MCHC 32.4 L g/dL
(33.0-37.0)
Abs Immat Gran (auto) 0.1 H 10^3/uL
(0-0.05)
Absolute Neuts (auto) 11.8 H 10^3/uL
(1.4-6.5)
Absolute Lymphs (auto) 1.1 L 10^3/uL
(1.2-3.4)
Neutrophils % 87.4 H %
(42.2-75.2)
Lymphocytes % 8.0 L %
(20.5-51.1)
08/24/25 19:50
Vital Signs
Initial and Last Documented VS:
Initial Vital Signs
Temp Pulse Resp BP Pulse Ox
98.3 F 88 16 146/71 99
08/24/25 19:07 08/24/25 19:07 08/24/25 19:07 08/24/25 19:07 08/24/25 19:07
Last Documented Vital Signs
Temp Pulse Resp BP Pulse Ox
98.3 F 78 14 123/52 99
08/24/25 19:07 08/24/25 20:00 08/24/25 20:00 08/24/25 20:00 08/24/25 20:20
*Pulse Oximetry
SaO2: 99
Oxygen Mode of Delivery: Room air
Patient hypoxic: no
*Critical Care Note
Total Time (30-74mins, 75-104mins- exclusive of procedures): Not Applicable
ED Attending Note
-
Portions of this chart may have been created with voice recognition software.� Occasional wrong word or��sound alike� substitutions may have occurred due to the inherent limitations of voice recognition software.
Discharge Plan
Departure
Patient Disposition: Home (Routine Discharge)
Date of Disposition: 08/24/25
Time of Disposition: 20:21
Patient with high blood pressure during this ER visit?: No
Discharge Problem:
Acute urticaria
Instructions: Kennedyes (DC)
Prescriptions:
New
prednisone 10 mg Tablet
See Rx Instructions .ROUTE .COMPLEX Qty: 30 0RF
Rx Instructions:
Take By Mouth:
40 mg daily x3 days, 30 mg daily x3 days,
20 mg daily x3 days, 10 mg daily x3 days.
No Action
venlafaxine [Effexor XR] 150 MG capsule,extended release 24hr
150 mg PO DAILY
simvastatin 20 MG tablet
20 mg PO HS
bupropion HCl 150 MG tablet sustained-release 12 hr
150 mg PO DAILY
aspirin 81 MG tablet,chewable
81 mg PO DAILY
carvedilol 3.125 MG tablet
3.125 mg PO BID Qty: 60 10RF
levothyroxine 88 mcg Capsule
88 mcg PO DAILY
Jardiance 10 mg Tablet
10 mg PO DAILY
Entresto 24-26 mg Tablet
1 tab PO BID
famotidine 10 mg Tablet
10 mg PO DAILY
Activity Restrictions/Additional Instructions:
Return immediately for swelling, tongue swelling, shortness of breath or worsening symptoms or any other concerns. Please see your doctor for follow-up in the next 1 week if symptoms persist
Interventions
Interventions:
*Risk Screen - Suicide Last Done: 08/24/25 19:36
*General Assessment Last Done: 08/24/25 19:36
*Neglect/Abuse Screening Last Done: 08/24/25 19:36
*ED COVID-19 Vaccine History Last Done: 08/24/25 19:36
*ED Influenza Vaccine History Last Done: 08/24/25 19:37
[facility] Fall Risk Assessment Tool Last Done: 08/24/25 19:37
ED- Cardiac Assessment Last Done: 08/24/25 20:08
ED- Pulmonary Assessment Last Done: 08/24/25 20:08
ED-Skin Assessment Last Done: 08/24/25 20:08
Discharge Date and Time
Print Language: WELSH
[2025-08-24 20:25] LABS: ALT (SGPT) 13 U/L (0-35); AST (SGOT) 19 U/L (14-36); Albumin 4.0 g/dl (3.5-5.0); Alkaline Phosphatase 69 U/L (38-126); Blood Urea Nitrogen 18 mg/dl (7-17); Calcium 8.8 mg/dl (8.4-10.2); Carbon Dioxide 30 mmol/L (22-30); Chloride 102 mmol/L (98-107); Estimated Creatinine Clearance 43 ml/min; Glucose 98 mg/dl (70-99); Potassium 3.6 mmol/L (3.5-5.1); Sodium 138 mmol/L (135-145); Total Protein 6.7 g/dl (6.3-8.2); eGFR 51.43
[2025-08-24] MEDS: DECADRON 10 MG IV (20:28)
[2025-08-24] MEDS: PEPCID 20 MG IV (20:29)
== END 2025-08-24 20:51 | disposition home or self-care (01) ==
LOC: EMR 19:02
PROVIDERS: Student in an Organized Health Care Education/Training Program; EMERGENCY PHYSICIAN Emergency Medicine; FAMILY PHYSICIAN Internal Medicine
DX: L50.9 Urticaria, unspecified (principal); E11.9 Type 2 diabetes mellitus without complications; I10 Essential (primary) hypertension; E78.00 Pure hypercholesterolemia, unspecified; E03.9 Hypothyroidism, unspecified; F32.A Depression, unspecified; Z95.0 Presence of cardiac pacemaker; Z88.5 Allergy status to narcotic agent; Z88.6 Allergy status to analgesic agent
CPT/HCPCS: 99284; 96374; 96375; 80053; 85025